=== PATIENT | female | born 1965 | race African-American/Black ===

== ENCOUNTER 2021-02-04 04:48 | Day surgery (SDC) | payer BC ==
[2021-02-03 08:48] VITALS: BMI 28.3
[2021-02-04] MEDS ORDERED: PROPOFOL 20 ML ONE (13:28)
[2021-02-04] MEDS ORDERED: MIDAZOLAM HCL 2 MG/2 ML SINGLE DOSE VIAL ONE (13:28)
[2021-02-04] MEDS ORDERED: ceFAZolin SODIUM 1 GM VIAL IVPB ONE (14:00)
[2021-02-04 19:10] VITALS: BP 136/80; PULSE 70; TEMP 97.8
== END 2021-02-04 19:00 | disposition home or self-care (01) ==
LOC: JASU-SURG 04:48
PROVIDERS: ATTEND Obstetrics & Gynecology
PROC: 0UDB8ZX Extraction of Endometrium, Via Natural or Artificial Opening Endoscopic, Diagnostic (ICD-10-PCS; principal; 2021-02-04 14:00)
DX: N92.0 Excessive and frequent menstruation with regular cycle (principal)
CPT/HCPCS: 88305-TC; 94760